=== PATIENT | female | born 1980 | race American Indian/Alaskan Native ===

== ENCOUNTER 2017-06-10 21:29 | Outpatient (CLI) | payer MEDICAID ==
[2017-06-10] MEDS ORDERED: LACTATED RINGERS 500 ML IV ONE (21:36)
[2017-06-10 21:46] VITALS: BP 119/71
[2017-06-10 22:14] LABS: Bilirubin,Urine NEG (Negative); Blood,Urine NEG (Negative); Ketones,Urine NEG (Negative); Leukocyte Esterase,Urine NEG (Negative); Nitrite,Urine NEG (Negative); Protein,Urine <15 mg/dL mg/dL (Negative); WBC,Urine < 1.0 /HPF (0.0-6.0)
[2017-06-10] MEDS ORDERED: VISTARIL PO ONE (22:23)
== END 2017-06-10 22:35 | disposition home or self-care (01) ==
LOC: TRG 21:29
PROVIDERS: ATTEND Obstetrics & Gynecology
DX: O09.523 Supervision of elderly multigravida, third trimester (principal); O99.333 Smoking (tobacco) complicating pregnancy, third trimester; O47.03 False labor before 37 completed weeks of gestation, third trimester; Z3A.36 36 weeks gestation of pregnancy
CPT/HCPCS: 81001; Q0177

== ENCOUNTER 2017-06-18 20:17 | Outpatient (CLI) | payer MEDICAID ==
[2017-06-18 20:35] VITALS: BP 126/68
== END 2017-06-18 21:25 | disposition home or self-care (01) ==
LOC: TRG 20:17
PROVIDERS: ATTEND Obstetrics & Gynecology
DX: O09.523 Supervision of elderly multigravida, third trimester (principal); O99.333 Smoking (tobacco) complicating pregnancy, third trimester; O47.1 False labor at or after 37 completed weeks of gestation; Z3A.37 37 weeks gestation of pregnancy
CPT/HCPCS: 59025

== ENCOUNTER 2017-06-21 08:19 | Inpatient (IN) | payer MEDICAID ==
[2017-06-21] MEDS ORDERED: PITOCin/NS 20 UNIT/1000ML DRIP 20,000 MILLIUNITS/1,000 ML BAG IV ONE (09:19)
[2017-06-21] MEDS ORDERED: LACTATED RINGERS 1,000 ML ONE (09:19)
[2017-06-21] MEDS ORDERED: LACTATED RINGERS 1,000 ML IV ONE (09:30)
--- NOTE | 2017-06-21 09:43 | History and Physical Report ---
History of Present Illness Date of examination: 06/21/17 Date of admission: 06/21/17 08:20 Chief complaint: Contractions at 36 weeks. History of present illness: Patient is a 36 year old , LMP 10/09/16, EDC 07/16/17 at 36 weeks and 3 days gestation who presented to the hospital complaining of having contractions since 8 PM last night. She denies any fluid leakage or bleeding. She reports good movement. She is a late registrant to [facility] and has had one visit at [facility] last week at 35+ weeks. She was given lab orders but she left without doing the labs. She has a history of C/section x 1 and a successful x1 in 2014. tracing is CAT 1 and toco: every 2 mins. cervix:9 cm/100/-1 to 0 station. Past History Past Medical History: mitral valve prolapse, other (depression) Past Surgical History: section Social history: single, smoking - Obstetrical History Expected Date of Delivery: 07/16/17 Actual Gestation: 36 Week(s) 3 Day(s) : 4 Para: 3 Number of Living Children: 3 Medications and Allergies Allergies Allergy/AdvReac Type Severity Reaction Status Date / Time No Known Allergies Allergy Verified 06/21/17 08:23 Home Medications Medication Instructions Recorded Confirmed Last Taken Type Vit Calc,Iron,Folic 1 each PO DAILY 06/21/17 06/21/17 06/20/17 09:00 History [ Vitamins] 1 Active Meds: Active Medications Ampicillin Sodium (Polycillin/Ns 2 Gm/100 Ml) 2 gm in 100 mls @ 100 mls/hr IV ONCE ONE Stop: 06/21/17 11:29 Lactated Ringer's (Lactated Ringers) 1,000 mls @ 999 mls/hr IV BOLUS ONE Stop: 06/21/17 10:30 Oxytocin/Sodium Chloride (Pitocin/Ns 20 Unit/1000ml Drip) 20 units in 1,000 mls @ 0 mls/hr IV DIRECT FLOR PRN Reason: As Directed - Vital Signs Vital signs: Vital Signs Pulse BP 55 L 149/72 06/21/17 08:40 06/21/17 08:40 Temp Pulse Resp BP Pulse Ox 58 L 130/70 100 06/21/17 09:41 06/21/17 09:41 06/21/17 09:36 - Physical Exam Cardiovascular: Normal S1, Normal S2 Lungs: Positive: Clear to auscultation Vulva: both: normal Deep Tendon Reflex Grade: Normal +2 - Obstetrical FHR: category 1 Uterine Contraction Monitor Mode: External Cervical Dilatation: 9 Cervical Effacement Percentage: 100 station: -1 to 0 Uterine Contraction Pattern: Regular Results Result Diagrams: 06/21/17 09:35 All other labs normal. Assessment and Plan - Patient Problems (1) 36 weeks gestation of Current Visit: Yes Status: Acute (2) labor Current Visit: Yes Status: Acute Plan to address problem: Admit to labor floor. Routine admitting labs and labs. NPO. and toco monitoring. IV fluid, IV ampicillin. Anesthesia consult. (3) Previous section Current Visit: Yes Status: Acute Plan to address problem: Patient wants . Pt wants epidural. Labs pending, anesthesia aware (4) Late care Current Visit: Yes Status: Acute (5) GBS screening not performed Current Visit: Yes Status: Acute
[2017-06-21] MEDS ORDERED: PITOCin/NS 20 UNIT/1000ML DRIP 20 UNITS/1,000 ML BAG IV SCH ×2 (10:00→11:00)
[2017-06-21] MEDS ORDERED: ePHEDrine SULFATE IV PRN (10:00)
[2017-06-21] MEDS ORDERED: LACTATED RINGERS 1,000 ML IV SCH (10:00)
[2017-06-21 10:01] LABS: Basophils % (Auto) 0.3 % (0.0-1.8); Eosinophils % (Auto) 0.4 % (0.0-4.3); Hematocrit 30.9 % (30.3-42.9); Hemoglobin 10.2 gm/dl (10.1-14.3); Mean Corpuscular HGB Conc 33 % (30-34); Mean Corpuscular Hemoglobin 27 pg (28-32); Mean Corpuscular Volume 83 fl (79-97); Platelet Count 201 K/mm3 (140-440); Red Blood Count 3.72 M/mm3 (3.65-5.03); Red Cell Distribution Width 14.3 % (13.2-15.2); White Blood Count 9.9 K/mm3 (4.5-11.0)
[2017-06-21 10:27] LABS: HIV-1 Antigen p24 Non React (Non React); HIVR-1/2 Ab Non React (Non React)
[2017-06-21] MEDS ORDERED: NARCAN 2 MG/2 ML IV PRN (10:27)
--- NOTE | 2017-06-21 10:29 | Anesthesia Consultation ---
Anesthesia Consult and Med Hx Date of service: 06/21/17 - Airway Anesthetic Teeth Evaluation: Good ROM Head & Neck: Adequate Mental/Hyoid Distance: Adequate Mallampati Class: Class II Intubation Access Assessment: Probably Good - Pulmonary Exam CTA: Yes - Cardiac Exam Cardiac Exam: RRR - Pre-Operative Health Status ASA Pre-Surgery Classification: ASA2 Proposed Anesthetic Plan: Epidural, Spinal - Pulmonary Hx Smoking: Yes Hx Asthma: No COPD: No Hx Pneumonia: No - Cardiovascular System Hx Hypertension: No Hx Valvular Heart Disease: Yes (MVP) - Central Nervous System Hx Seizures: No Hx Psychiatric Problems: No - Endocrine Hx Renal Disease: No Hx End Stage Renal Disease: No Hx Hypothyroidism: No Hx Hyperthyroidism: No - Hematic Hx Anemia: No Hx Sickle Cell Disease: No - Other Systems Hx Alcohol Use: No - Additional Comments Anesthesia Medical History Comments: IUP
[2017-06-21] MEDS ORDERED: POLYCILLIN/NS 2 GM/100 ML 2 GM/100 ML BAG IV ONE (10:30)
[2017-06-21] MEDS ORDERED: TUCKS PAD TP PRN (10:40)
[2017-06-21] MEDS ORDERED: PHENERGAN PO PRN (10:40)
[2017-06-21] MEDS ORDERED: LANSINOH TP PRN (10:40)
[2017-06-21] MEDS ORDERED: PHENERGAN PR PRN (10:40)
[2017-06-21] MEDS ORDERED: DULCOLAX PR PRN (10:40)
[2017-06-21] MEDS ORDERED: MILK OF MAGNESIA PO PRN (10:40)
[2017-06-21] MEDS ORDERED: BENADRYL PO PRN (10:40)
[2017-06-21] MEDS ORDERED: ZOFRAN IV PRN (10:40)
--- NOTE | 2017-06-21 10:50 | Progress Note ---
Assessment and Plan - Patient Problems (1) 36 weeks gestation of Current Visit: Yes Status: Acute (2) labor Current Visit: Yes Status: Acute (3) Previous section Current Visit: Yes Status: Acute Plan to address problem: Patient wants . Pt wants epidural. Labs pending, anesthesia aware (4) Late care Current Visit: Yes Status: Acute (5) GBS screening not performed Current Visit: Yes Status: Acute (6) , delivered Current Visit: Yes Status: Acute (7) Anemia Current Visit: Yes Status: Acute Qualifiers: Anemia type: iron deficiency (8) Mitral valve prolapse Current Visit: Yes Status: Acute Plan to address problem: Patient has been asymptomatic. Subjective - Subjective Date of service: 06/21/17 Principal diagnosis: labor at 36 weeks. Interval history: Patient became fully dilated and had SROM with meconium while seated for the epidural. She delivered via a live male infant from an NALINI position with Apgars of 8 at 1 min and 9 at 5 mins at 10:38 AM. Bulb suction of mouth and nose , cord clamped and cut, cord blood collected. The placenta was delivered spontaneously and was complete with a 3-vessel cord at 10:41 AM. No laceration was sustained, no episiotomy was given. EBL was 150 cc. The uterus was firm. Peds were present. Patient remains stable. Objective - Vital Signs Latest vital signs: Vital Signs Temp Pulse Resp BP Pulse Ox 06/21/17 10:43 55 L 140/73 06/21/17 10:41 53 L 128/62 06/21/17 10:39 25 L 79 L 06/21/17 10:38 58 L 168/98 06/21/17 10:33 58 L 144/73 06/21/17 10:31 60 140/70 06/21/17 10:29 58 L 145/72 06/21/17 10:27 52 L 137/70 06/21/17 10:25 85 155/85 100 06/21/17 10:20 104 H 100 06/21/17 10:11 86 100 06/21/17 10:06 75 100 06/21/17 10:01 67 100 06/21/17 09:56 87 100 06/21/17 09:51 61 100 06/21/17 09:46 60 100 06/21/17 09:41 59 L 130/70 100 06/21/17 09:36 65 100 06/21/17 09:31 65 100 06/21/17 09:27 77 100 06/21/17 09:24 97.5 F L 77 20 100 06/21/17 08:40 55 L 149/72 Intake and Output 06/20/17 06/21/17 06/21/17 23:59 07:59 15:59 Other: Weight 77.111 kg Patient Weight 06/21/17 23:59 Weight 77.111 kg - Exam Cardiovascular: Present: Normal S1, Normal S2 Lungs: Present: Clear to auscultation Vulva: both: normal Deep Tendon Reflex Grade: Normal +2 - Labs Labs: Abnormal lab results 06/21/17 Range/Units 09:35 MCH 27 L (28-32) pg
[2017-06-21] MEDS: MOTRIN PO SCH ×3 (10:59→22:44)
[2017-06-21] MEDS: PERCOCET 5/325 PO PRN ×3 (10:59→22:43)
[2017-06-21] MEDS ORDERED: fentaNYL-BUPIV 2 MCG/ML-0.125% 200 MCG/100 ML BAG EPIDURAL SCH (11:00)
[2017-06-21] MEDS ORDERED: SODIUM CHLORIDE FLUSH SYRINGE 10 ML IV NR (11:00)
[2017-06-21 13:44] LABS: Urine Drugs of Abuse Note Disclamer
[2017-06-21] MEDS ORDERED: POLYCILLIN/NS 1 GM/50 ML 1 GM/50 ML BAG IV SCH (14:30)
--- NOTE | 2017-06-21 14:38 | Procedure Note ---
OB Delivery Note - Delivery Date of Delivery: 06/21/17 Surgeon: SAUL DURAND Estimated blood loss: 100cc - Vaginal Delivery presentation: vertex Delivery position: OA Intrapartum events: none, meconium Delivery induction: none Delivery monitor: external FHT Route of delivery: Delivery placenta: spontaneous Delivery cord: nuchal cord, 3 umbilical vessels Episiotomy: none Delivery laceration: none Anesthesia: epidural Delivery comments: Patient became fully dilated and had SROM with meconium while seated for the epidural. She delivered via a live male from an NALINI position with Apgars of 8 at 1 min and 9 at 5 mins at 10:38 AM. There was nuchal cord x 1. Bulb suction of mouth and nose, cord clamped and cut, cord blood collected. The placenta was delivered spontaneously and was complete with a 3-vessel cord at 10 :41 AM. No laceration was sustained, no episiotomy was given. EBL was 150 cc. The uterus was firm. Peds were present. Patient remains stable.
[2017-06-21 22:38] LABS: Hematocrit 25.8 % (30.3-42.9); Hemoglobin 8.4 gm/dl (10.1-14.3)
[2017-06-22] MEDS: PERCOCET 5/325 PO PRN ×3 (05:35→20:29)
[2017-06-22] MEDS: MOTRIN PO SCH ×3 (05:35→17:28)
[2017-06-22] MEDS ORDERED: BOOSTRIX IM ONE (06:00)
--- NOTE | 2017-06-22 09:03 | Progress Note ---
Assessment and Plan - Patient Problems (1) , delivered Onset Date: 06/22/17 Current Visit: Yes Status: Resolved Plan to address problem: A: S/P - PPD #1 Doing well Asymptomatic anemia - stable P: May go home tomorrow (2) Anemia Onset Date: 06/22/17 Current Visit: Yes Status: Acute Qualifiers: Anemia type: iron deficiency Iron deficiency anemia type: inadequate dietary iron intake Qualified Code(s): D50.8 - Other iron deficiency anemias Subjective - Subjective Date of service: 06/22/17 Principal diagnosis: s/p - PPD #1 Interval history: Pt is feeling well without complaints. Bleeding improved. Patient reports: appetite normal, voiding normally, pain well controlled, flatus , ambulating normally [place]: doing well, bottle feeding Objective - Vital Signs Latest vital signs: Vital Signs Temp Pulse Resp BP BP Pulse Ox 06/22/17 05:35 18 06/22/17 00:11 98.6 F 55 L 20 119/69 97 06/21/17 22:44 20 06/21/17 22:43 20 06/21/17 22:04 98.6 F 54 L 22 111/61 06/21/17 12:46 99 F 50 L 18 133/73 06/21/17 12:25 133/73 06/21/17 11:45 52 L 141/71 06/21/17 11:44 56 L 158/65 06/21/17 11:29 49 L 129/70 06/21/17 11:26 59 L 100 06/21/17 11:21 54 L 100 06/21/17 11:16 52 L 100 06/21/17 11:14 53 L 127/61 06/21/17 11:13 97.8 F 18 06/21/17 10:59 60 153/73 06/21/17 10:43 55 L 140/73 06/21/17 10:41 53 L 128/62 06/21/17 10:39 25 L 79 L 06/21/17 10:38 58 L 168/98 06/21/17 10:33 58 L 144/73 06/21/17 10:31 60 140/70 06/21/17 10:29 58 L 145/72 06/21/17 10:27 52 L 137/70 06/21/17 10:25 85 155/85 100 06/21/17 10:20 104 H 100 06/21/17 10:11 86 100 06/21/17 10:06 75 100 06/21/17 10:01 67 100 06/21/17 09:56 87 100 06/21/17 09:51 61 100 06/21/17 09:46 60 100 06/21/17 09:41 59 L 130/70 100 06/21/17 09:36 65 100 06/21/17 09:31 65 100 06/21/17 09:27 77 100 06/21/17 09:24 97.5 F L 77 20 100 Intake and Output 06/21/17 06/22/17 06/22/17 22:59 06:59 14:59 Intake Total 360 Balance 360 Intake: Intake, Free Water 360 Other: # Voids Void 2 - Exam Breasts: Present: deferred Cardiovascular: Present: Regular rate Lungs: Present: Clear to auscultation Abdomen: Present: normal appearance, soft, tenderness Uterus: Present: normal, firm, fundal height below umbilicus Extremities: Present: normal - Labs Labs: Abnormal lab results 06/21/17 06/21/17 Range/Units 09:35 22:23 Hgb 8.4 L (10.1-14.3) gm/dl Hct 25.8 L (30.3-42.9) % MCH 27 L (28-32) pg Laboratory Tests 06/21/17 06/21/17 06/21/17 09:00 09:35 09:35 WBC 9.9 RBC 3.72 Hgb 10.2 Hct 30.9 MCV 83 MCH 27 L MCHC 33 RDW 14.3 Plt Count 201 Lymph % (Auto) 30.3 Christian % (Auto) 6.1 Eos % (Auto) 0.4 Baso % (Auto) 0.3 Lymph # 3.0 Christian # 0.6 Eos # 0.0 Baso # 0.0 Seg Neutrophils % 62.9 Seg Neutrophils # 6.2 Sickle Cell Screen Negative Urine Opiates Screen Urine Methadone Screen Ur Barbiturates Screen Ur Phencyclidine Scrn Ur Amphetamines Screen U Benzodiazepines Scrn Urine Cocaine Screen U Marijuana (THC) Screen Drugs of Abuse Note RPR Hep Bs Antigen Hepatitis C Antibody HIV 1&2 Antibody Rapid Non react HIV P24 Antigen Non react Rubella IgG Antibody Blood Type B POSITIVE Antibody Screen Negative PEG Antibody Screen Negative 06/21/17 06/21/17 06/21/17 09:37 09:37 09:37 WBC RBC Hgb Hct MCV MCH MCHC RDW Plt Count Lymph % (Auto) Christian % (Auto) Eos % (Auto) Baso % (Auto) Lymph # Christian # Eos # Baso # Seg Neutrophils % Seg Neutrophils # Sickle Cell Screen Urine Opiates Screen Urine Methadone Screen Ur Barbiturates Screen Ur Phencyclidine Scrn Ur Amphetamines Screen U Benzodiazepines Scrn Urine Cocaine Screen U Marijuana (THC) Screen Drugs of Abuse Note RPR Nonreactive Hep Bs Antigen Non-reactive Hepatitis C Antibody Non-reactive HIV 1&2 Antibody Rapid HIV P24 Antigen Rubella IgG Antibody Immune Blood Type Antibody Screen PEG Antibody Screen 06/21/17 06/21/17 11:10 22:23 WBC RBC Hgb 8.4 L Hct 25.8 L MCV MCH MCHC RDW Plt Count Lymph % (Auto) Christian % (Auto) Eos % (Auto) Baso % (Auto) Lymph # Christian # Eos # Baso # Seg Neutrophils % Seg Neutrophils # Sickle Cell Screen Urine Opiates Screen Presumptive negative Urine Methadone Screen Presumptive negative Ur Barbiturates Screen Presumptive negative Ur Phencyclidine Scrn Presumptive negative Ur Amphetamines Screen Presumptive negative U Benzodiazepines Scrn Presumptive negative Urine Cocaine Screen Presumptive negative U Marijuana (THC) Screen Presumptive positive Drugs of Abuse Note Disclamer RPR Hep Bs Antigen Hepatitis C Antibody HIV 1&2 Antibody Rapid HIV P24 Antigen Rubella IgG Antibody Blood Type Antibody Screen PEG Antibody Screen
--- NOTE | 2017-06-22 09:05 | Discharge Summary ---
Providers - Providers Date of Admission: 06/21/17 08:20 Date of discharge: 06/23/17 Attending physician: SAUL DURAND MD Primary care physician: SAUL DURAND MD Hospitalization Reason for admission: active labor Delivery: Episiotomy: none Laceration: none Other procedures: none complications: none Discharge diagnosis: IUP at term delivered, [place] baby: male Hospital course: Unremarkable. Condition at discharge: Good Disposition: [id number]-01 TO HOME OR SELFCARE - Discharge Diagnoses (1) , delivered Status: Resolved (2) Anemia Status: Acute Qualifiers: Anemia type: iron deficiency Iron deficiency anemia type: inadequate dietary iron intake Qualified Code(s): D50.8 - Other iron deficiency anemias Plan - Discharge Medications Prescriptions: Ferrous Sulfate [Feosol 325 MG tab] 325 mg PO BID #60 tablet Ibuprofen [Motrin 600 MG tab] 600 mg PO Q6H #30 tablet Vit-Fe Fumar-FA [ Vitamin] 1 each PO QDAY #30 tablet - Provider Discharge Summary Activity: routine, no sex for 6 weeks, no heavy lifting 4 weeks, no strenuous exercise Diet: routine Instructions: routine Additional instructions: [] Smoking cessation referral if applicable(refer to patient education folder for contact #) [] Refer to [facility] Booklet Call your doctor immediately for: * Fever > 100.5 * Heavy vaginal bleeding ( >1 pad per hour) * Severe persistent headache * Shortness of breath * Reddened, hot, painful area to leg or breast * Drainage or odor from incision. * Keep incision clean and dry at all times and follow doctor's instructions regarding bathing/showering - Follow up plan Follow up: SAUL DURAND MD [Primary Care Provider] - 6 Weeks
[2017-06-22] MEDS: PRENATAL VITAMIN PO SCH (12:59)
[2017-06-22] MEDS: TYLENOL PO PRN ×2 (16:00→20:29)
[2017-06-23] MEDS: PERCOCET 5/325 PO PRN ×2 (03:20→10:16)
[2017-06-23] MEDS: MOTRIN PO SCH ×2 (06:00)
[2017-06-23] MEDS: PRENATAL VITAMIN PO SCH (10:16)
[2017-06-23 14:04] VITALS: BP 106/69
== END 2017-06-23 14:25 | disposition home or self-care (01) | DRG 774 ==
LOC: TRG 08:19 → LD 08:20 → TRG 08:20 → OB 12:23
PROVIDERS: ADMIT Obstetrics & Gynecology; ATTEND Obstetrics & Gynecology
PROC: 10E0XZZ Delivery of Products of Conception, External Approach (ICD-10-PCS; principal; 2017-06-21)
PROC: 3E0R3BZ Introduction of Anesthetic Agent into Spinal Canal, Percutaneous Approach (ICD-10-PCS; 2017-06-21)
PROC: 00HU33Z Insertion of Infusion Device into Spinal Canal, Percutaneous Approach (ICD-10-PCS; 2017-06-21)
DX: O34.211 Maternal care for low transverse scar from previous cesarean delivery (principal); O99.42 Diseases of the circulatory system complicating childbirth; O99.03 Anemia complicating the puerperium; D64.9 Anemia, unspecified; O99.344 Other mental disorders complicating childbirth; F32.9 Major depressive disorder, single episode, unspecified; O99.334 Smoking (tobacco) complicating childbirth; F17.200 Nicotine dependence, unspecified, uncomplicated; O60.14X0 Preterm labor third trimester with preterm delivery third trimester, not applicable or unspecified; I34.1 Nonrheumatic mitral (valve) prolapse; O77.0 Labor and delivery complicated by meconium in amniotic fluid; O69.81X0 Labor and delivery complicated by cord around neck, without compression, not applicable or unspecified; Z3A.36 36 weeks gestation of pregnancy; Z37.0 Single live birth; O09.32 Supervision of pregnancy with insufficient antenatal care, second trimester
CPT/HCPCS: 36415; 59025; 80307; 85014; 85018; 85025; 85660; 86592; 86706; 86762; 86803; 86850; 86900; 86901; 87806; 90715; 99406; J0290; J2590; J7120

== ENCOUNTER 2018-03-17 20:08 | Emergency (ER) | payer MEDICAID ==
--- NOTE | 2018-03-18 01:02 | Emergency Department Report ---
ED ENT HPI - General Chief complaint: Dental/Oral Stated complaint: TOOTHACHE Time Seen by Provider: 03/18/18 00:37 Source: patient Mode of arrival: Ambulatory Limitations: No Limitations - History of Present Illness Initial comments: Patient presents for dental pain and acute on chronic for last 2 years has no facial swelling swelling no throat or ear pain pain is described for routine patient patient advised I will hold the tooth there is no focal abscess no drainage noted plan amoxicillin ibuprofen Peridex follow-up with dentist in 2-3 days as scheduled [place] complaint: tooth pain Onset/Timin -: week(s) Location: tooth # (4) Severity: moderate Severity scale (0 -10): 4 Quality: aching Consistency: constant Improves with: none Worsens with: other (hot and cold stimuli ) Context- Dental: poor dental care Associated Symptoms: toothache. denies: sore throat - Related Data Home Medications Medication Instructions Recorded Confirmed Last Taken Vit Calc,Iron,Folic 1 each PO DAILY 06/21/17 06/21/17 06/20/17 09:00 [ Vitamins] 1 Previous Rx's Medication Instructions Recorded Last Taken Type Ferrous Sulfate [Feosol 325 MG tab] 325 mg PO BID #60 tablet 06/22/17 Unknown Rx Ibuprofen [Motrin 600 MG tab] 600 mg PO Q6H #30 tablet 06/22/17 Unknown Rx Vit-Fe Fumar-FA [ 1 each PO QDAY #30 tablet 06/22/17 Unknown Rx Vitamin] Ibuprofen [Motrin] 800 mg PO Q8HR PRN #30 tablet 06/23/17 Unknown Rx Amoxicillin [Trimox CAP] 500 mg PO Q8H #30 capsule 03/18/18 Unknown Rx Chlorhexidine Mouthwash [Peridex] 15 ml MM BID #1 bottle 03/18/18 Unknown Rx Ibuprofen 800 mg PO TID PRN #30 tablet 03/18/18 Unknown Rx Allergies Allergy/AdvReac Type Severity Reaction Status Date / Time No Known Allergies Allergy Verified 06/21/17 08:23 ED Dental HPI - General Chief complaint: Dental/Oral Stated complaint: TOOTHACHE Time Seen by Provider: 03/18/18 00:37 Source: patient Mode of arrival: Ambulatory Limitations: No Limitations - Related Data Home Medications Medication Instructions Recorded Confirmed Last Taken Vit Calc,Iron,Folic 1 each PO DAILY 06/21/17 06/21/1706/20/17 09:00 [ Vitamins] 1 Previous Rx's Medication Instructions Recorded Last Taken Type Ferrous Sulfate [Feosol 325 MG tab] 325 mg PO BID #60 tablet 06/22/17 Unknown Rx Ibuprofen [Motrin 600 MG tab] 600 mg PO Q6H #30 tablet 06/22/17 Unknown Rx Vit-Fe Fumar-FA [ 1 each PO QDAY #30 tablet 06/22/17 Unknown Rx Vitamin] Ibuprofen [Motrin] 800 mg PO Q8HR PRN #30 tablet 06/23/17 Unknown Rx Amoxicillin [Trimox CAP] 500 mg PO Q8H #30 capsule 03/18/18 Unknown Rx Chlorhexidine Mouthwash [Peridex] 15 ml MM BID #1 bottle 03/18/18 Unknown Rx Ibuprofen 800 mg PO TID PRN #30 tablet 03/18/18 Unknown Rx Allergies Allergy/AdvReac Type Severity Reaction Status Date / Time No Known Allergies Allergy Verified 06/21/17 08:23 ED Review of Systems ROS: Stated complaint: TOOTHACHE Other details as noted in HPI Constitutional: denies: chills, fever Eyes: denies: eye pain, eye discharge, vision change ENT: dental pain. denies: ear pain, throat pain, hearing loss, epistaxis, congestion Respiratory: denies: cough, shortness of breath, wheezing Cardiovascular: denies: chest pain, palpitations Endocrine: no symptoms reported Gastrointestinal: denies: abdominal pain, nausea, diarrhea Genitourinary: denies: urgency, dysuria, discharge Musculoskeletal: denies: back pain, joint swelling, arthralgia Skin: denies: rash, lesions Neurological: denies: headache, weakness, paresthesias Psychiatric: denies: anxiety, depression Hematological/Lymphatic: denies: easy bleeding, easy bruising ED Past Medical Hx - Past Medical History Previous Medical History?: No Hx Hypertension: No Hx Congestive Heart Failure: No Hx Diabetes: No Hx Deep Vein Thrombosis: No Hx Renal Disease: No Hx Sickle Cell Disease: No Hx Seizures: No Hx Asthma: No Hx COPD: No Hx Tuberculosis: No Hx HIV: No Additional medical history: Childbirth vaginal delivery September 23, 2012 - Surgical History Past Surgical History?: No - Social History Smoking Status: Current Every Day Smoker Substance Use Type: None - Medications Home Medications: Home Medications Medication Instructions Recorded Confirmed Last Taken Type Vit Calc,Iron,Folic 1 each PO DAILY 06/21/17 06/21/17 06/20/17 09:00 History [ Vitamins] 1 Ferrous Sulfate [Feosol 325 MG tab] 325 mg PO BID #60 tablet 06/22/17 Unknown Rx Ibuprofen [Motrin 600 MG tab] 600 mg PO Q6H #30 tablet 06/22/17 Unknown Rx Vit-Fe Fumar-FA [ 1 each PO QDAY #30 tablet 06/22/17 Unknown Rx Vitamin] Ibuprofen [Motrin] 800 mg PO Q8HR PRN #30 tablet 06/23/17 Unknown Rx Amoxicillin [Trimox CAP] 500 mg PO Q8H #30 capsule 03/18/18 Unknown Rx Chlorhexidine Mouthwash [Peridex] 15 ml MM BID #1 bottle 03/18/18 Unknown Rx Ibuprofen 800 mg PO TID PRN #30 tablet 03/18/18 Unknown Rx ED Physical Exam - General Limitations: No Limitations General appearance: alert, in no apparent distress - Head Head exam: Present: atraumatic, normocephalic - Eye Eye exam: Present: normal appearance - Expanded ENT Exam Expanded Teeth exam: Present: dental caries, fractured tooth # (4), dental tenderness # ( 4). Absent: gingival enlargement Throat exam: Positive: normal inspection. Negative: tonsillar erythema, tonsillomegaly, tonsillar exudate, R peritonsillar mass, L peritonsillar mass - Neck Neck exam: Present: normal inspection, full ROM. Absent: tenderness, lymphadenopathy, thyromegaly - Respiratory Respiratory exam: Present: normal lung sounds bilaterally. Absent: respiratory distress, wheezes, stridor, chest wall tenderness - Cardiovascular Cardiovascular Exam: Present: regular rate, normal rhythm. Absent: systolic murmur, diastolic murmur, rubs, gallop - GI/Abdominal GI/Abdominal exam: Present: soft, normal bowel sounds. Absent: distended, tenderness, bruit, hernia - Rectal Rectal exam: Present: deferred - Extremities Exam Extremities exam: Present: normal inspection - Back Exam Back exam: Present: normal inspection - Neurological Exam Neurological exam: Present: alert, oriented X3 - Psychiatric Psychiatric exam: Present: normal affect, normal mood - Skin Skin exam: Present: warm, dry, intact, normal color. Absent: rash ED Course Vital Signs 03/17/18 21:14 Temperature 98 F Pulse Rate 96 H Respiratory 16 Rate Blood Pressure 121/79 O2 Sat by Pulse 100 Oximetry ED Medical Decision Making - Medical Decision Making Is infected though. Chronic dental fracture plan ibuprofen Peridex amoxicillin patient will follow up with dentist as scheduled in [place] in 2-3 days there is no focal abscess patient is tolerating by mouth intake without nausea vomiting patient DC'd to home in stable condition at this time Critical care attestation.: If time is entered above; I have spent that time in minutes in the direct care of this critically ill patient, excluding procedure time. ED Disposition Clinical Impression: Infected dental caries Disposition: DC-01 TO HOME OR SELFCARE Is pt being admited?: No Does the pt Need Aspirin: No Condition: Good Instructions: Dental Caries (ED) Additional Instructions: follow up with your dentist as schedule in 2-3 days Prescriptions: Amoxicillin [Trimox CAP] 500 mg PO Q8H #30 capsule Chlorhexidine Mouthwash [Peridex] 15 ml MM BID #1 bottle Ibuprofen 800 mg PO TID PRN #30 tablet PRN Reason: pain fever Referrals: PRIMARY CARE, [Primary Care Provider] - 3-5 Days Forms: Work/School Release Form(ED) Time of Disposition: 01:05
[2018-03-18 01:32] VITALS: BP 118/65
== END 2018-03-18 01:32 | disposition home or self-care (01) ==
LOC: ED 20:08
DX: K02.9 Dental caries, unspecified (principal); F17.200 Nicotine dependence, unspecified, uncomplicated
CPT/HCPCS: 99282

== ENCOUNTER 2021-09-22 11:44 | Emergency (ER) | payer MEDICAID ==
[2021-09-22 12:28] VITALS: BP 146/84
== END 2021-09-22 19:25 | disposition left against medical advice (07) ==
LOC: ED 11:44
DX: Z04.1 Encounter for examination and observation following transport accident (principal); Z53.21 Procedure and treatment not carried out due to patient leaving prior to being seen by health care provider; V87.7XXA Person injured in collision between other specified motor vehicles (traffic), initial encounter; Y93.89 Activity, other specified; Y92.488 Other paved roadways as the place of occurrence of the external cause; Y99.8 Other external cause status